=== PATIENT | male | born 2000 | race Two or more races ===

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

== ENCOUNTER 2022-04-10 16:30 | Emergency (ER) | payer MEDICAID ==
[~2022-04-10] VITALS: Ht 180.3 cm; Wt 79.6 kg
[2022-04-10 17:44] VITALS: BP 137/92
== END 2022-04-10 17:56 | disposition home or self-care (01) ==
LOC: ER 16:30
DX: F41.0 Panic disorder [episodic paroxysmal anxiety] (principal); J45.909 Unspecified asthma, uncomplicated; Z88.0 Allergy status to penicillin
CPT/HCPCS: 93005

== ENCOUNTER 2023-02-27 10:16 | Emergency (ER) | payer MEDICAID ==
[~2023-02-27] VITALS: Ht 180.3 cm; Wt 75.0 kg
[2023-02-27] MEDS ORDERED: LORazepam 0.5 MG TAB PO ONE (10:30)
[2023-02-27 11:18] VITALS: BP 125/87
== END 2023-02-27 11:25 | disposition home or self-care (01) ==
LOC: EDBD 10:16 → ER 10:16
DX: F41.0 Panic disorder [episodic paroxysmal anxiety] (principal); F41.9 Anxiety disorder, unspecified; J45.909 Unspecified asthma, uncomplicated; Z88.8 Allergy status to other drugs, medicaments and biological substances; Z88.0 Allergy status to penicillin